=== PATIENT | female | born 2000 | race Caucasian/White ===

== ENCOUNTER 2018-06-28 04:33 | Observation (INO) | payer SELFPAY ==
[2018-06-28] MEDS ORDERED: NS 1,000 ML IV ONE ×3 (04:41→07:04)
--- NOTE | 2018-06-28 04:41 | EDPHY ---
H & P Stated Complaint: LOWER ABD PAIN,DIARRHEA/POSS ALLERGIC REACTION Time Seen by Provider: 06/28/18 04:41 HPI/ROS: HPI CHIEF COMPLAINT: Abdominal pain, rash HISTORY OF PRESENT ILLNESS: 17-year-old female, history of asthma, presents emergency room with urticaria, this started approximately half an hour ago while she was coming to the emergency room. She happened to be come to the emergency room by private vehicle for abdominal pain. The abdominal pain is located in her lower abdomen. She did not have a rash or urticaria earlier tonight. Reports when she was driving over here she felt tingling in her face and broke out in this diffuse urticaria rash. Main complaint is mid abdomen periumbilical abdominal pain crampy. Across lower abdomen. This been present for few days. Patient reports that early in the week she was sick with a viral illness with nausea vomiting and diarrhea. Nonbloody. No fever. However did have some lower abdominal cramping got worse last night which prompted her to come to the emergency room. Subsequently upon arrival to the emergency room she broke out into in urticaria/ hives. She states her new. Denies new medications, new foods. Has never had this before. Past Medical History: Denies medical history except for asthma Past Surgical History: No surgical history Social History: Denies drugs alcohol tobacco. Family History: Noncontributory ROS REVIEW OF SYSTEMS: 10 Systems were reviewed and negative with the exception of the elements mentioned in the history of present illness. Exam Constitutional nontoxic, triage nursing summary reviewed, vital signs reviewed , awake/alert. Eyes normal conjunctivae and sclera, EOMI, PERRLA. HENT normal inspection, atraumatic, moist mucus membranes, no epistaxis, neck supple/ no meningismus, no raccoon eyes. Respiratory clear to auscultation bilaterally, normal breath sounds, no respiratory distress, no wheezing. Cardiovascular rate normal, regular rhythm, no murmur, no edema, distal pulses normal. Gastrointestinal mild tender palpation lower abdomen. no rebound, no guarding , normal bowel sounds, no distension, no pulsatile mass. Genitourinary no CVA tenderness. Musculoskeletal no midline vertebral tenderness, full range of motion, no calf swelling, no tenderness of extremities, no meningismus, good pulses, neurovascularly intact. Skin diffuse redness and urticaria. Flushed. Neurologic awake, alert and oriented x 3, AAOx3, moves all 4 extremities equally, motor intact, sensory intact, CN II-XII intact, normal cerebellar, normal vision, normal speech. Psychiatric normal mood/affect. Heme/Lymph/Immune no lymphadenopathy. Differential diagnosis includes but is not limited to and in no particular order : Bowel obstruction, appendicitis, gallbladder disease, diverticulitis, colitis , enteritis, perforated viscus, gastritis, GERD, esophagitis, urinary tract infection, pyelonephritis, kidney stones Medical Decision Making: Plan for this patient IV establishment IV fluid bolus , IV Solu-Medrol, IV Pepcid, IV Benadryl, close monitoring, watch for further allergic reaction, abdominal labs, blood work, urinalysis, test. Re- evaluate. Re-evaluation: 0559AM: Patient is feeling much better after IV fluids. CT scan abdomen pelvis with IV contrast called to me by Dr. Green shows enterocolitis. 0618: Patient is resting comfortably no acute distress. No abdominal pain on exam. Her urticaria and red skin has resolved IV fluids IV Solu-Medrol IV Benadryl and IV Pepcid. No further allergic reaction this time. CT scan shows fluid in her colon normal appendix, CT scan concerning for enterocolitis 0654: Re-evaluated patient her hives are gone, no urticaria, feeling well much improved after IV fluids and meds. CT scan reviewed Labs reviewed GI stool study sent. Return precautions discussed with patient return emergency room if worsening abdominal pain, bloody stools, fever, vomiting or not doing well. Here in emergency room she received allergic reaction medications including Solu -Medrol, Benadryl, Pepcid, IV fluids and is doing well. Prescription provided for Benadryl, Pepcid, prednisone for the next 3 days Return if worsening allergic reaction or abdominal pain fever vomiting she understands and is comfortable this plan. Source: Patient - Personal History LMP (Females 10-55): 15-21 Days Ago Current Tetanus Diphtheria and Acellular Pertussis (TDAP): No - Medical/Surgical History Hx Asthma: Yes Hx Chronic Respiratory Disease: No Hx Diabetes: No Hx Cardiac Disease: No Hx Renal Disease: No Hx Cirrhosis: No Hx Alcoholism: No Hx HIV/AIDS: No Hx Splenectomy or Spleen Trauma: No Other PMH: ASTHMA - Social History Smoking Status: Never smoked Constitutional: Initial Vital Signs Temperature (C) 37.1 C 06/28/18 04:37 Heart Rate 112 H 06/28/18 04:37 Respiratory Rate 16 06/28/18 04:37 Blood Pressure 121/77 H 06/28/18 04:37 O2 Sat (%) 98 06/28/18 04:37 O2 Delivery Mode Room Air Allergies/Adverse Reactions: No Known Allergies Allergy (Unverified 06/28/18 04:36) Home Medications: Medication Instructions Recorded Famotidine [Pepcid 20 MG (*)] 20 mg PO BID #6 tab 06/28/18 diphenhydrAMINE [Benadryl 25 MG 25 mg PO BID #6 tab 06/28/18 (*)] predniSONE 60 mg PO DAILY #9 tab 06/28/18 Medical Decision Making - Data Points Laboratory Results: Laboratory Results 06/28/18 05:04 06/28/18 05:04 06/28/18 06/28/18 06/28/18 05:04 05:04 05:04 WBC 11.85 10^3/uL H 10^3/uL (3.80-9.50) RBC 5.63 10^6/uL H 10^6/uL (4.18-5.33) Hgb 17.0 g/dL H g/dL (12.6-16.3) Hct 50.3 % H % (38.0-47.0) MCV 89.3 fL fL (81.5-99.8) MCH 30.2 pg pg (27.9-34.1) MCHC 33.8 g/dL g/dL (32.4-36.7) RDW 11.9 % % (11.5-15.2) Plt Count 336 10^3/uL 10^3/uL (150-400) MPV 11.0 fL fL (8.7-11.7) Neut % (Auto) 69.9 % % (39.3-74.2) Lymph % (Auto) 22.2 % % (15.0-45.0) [place] % (Auto) 6.1 % % (4.5-13.0) Eos % (Auto) 1.0 % % (0.6-7.6) Baso % (Auto) 0.3 % % (0.3-1.7) Nucleat RBC Rel Count 0.0 % % (0.0-0.2) Absolute Neuts (auto) 8.29 10^3/uL H 10^3/uL (1.70-6.50) Absolute Lymphs (auto) 2.63 10^3/uL 10^3/uL (1.00-3.00) Absolute Monos (auto) 0.72 10^3/uL 10^3/uL (0.30-0.80) Absolute Eos (auto) 0.12 10^3/uL 10^3/uL (0.03-0.40) Absolute Basos (auto) 0.03 10^3/uL 10^3/uL (0.02-0.10) Absolute Nucleated RBC 0.00 10^3/uL 10^3/uL (0-0.01) Immature Gran % 0.5 % % (0.0-1.1) Immature Gran # 0.06 10^3/uL 10^3/uL (0.00-0.10) Sodium 142 mEq/L mEq/L (135-145) Potassium 4.0 mEq/L mEq/L (3.5-5.2) Chloride 111 mEq/L H mEq/L (97-110) Carbon Dioxide 19 mEq/l L mEq/l (22-31) Anion Gap 12 mEq/L mEq/L (6-14) BUN 12 mg/dL mg/dL (7-23) Creatinine 0.7 mg/dL mg/dL (0.6-1.0) Estimated GFR > 60 Glucose 106 mg/dL H mg/dL (70-100) Calcium 9.9 mg/dL mg/dL (8.5-10.4) Total Bilirubin 0.5 mg/dL mg/dL (0.1-1.4) Conjugated Bilirubin 0.3 mg/dL mg/dL (0.0-0.5) Unconjugated Bilirubin 0.2 mg/dL mg/dL (0.0-1.1) AST 36 IU/L IU/L (14-46) ALT 32 IU/L IU/L (9-52) Alkaline Phosphatase 56 IU/L IU/L (38-126) Total Protein 7.2 g/dL g/dL (6.3-8.2) Albumin 4.4 g/dL g/dL (3.5-5.0) Lipase 73 IU/L IU/L (23-300) Beta HCG, Qual NEGATIVE Medications Given: Discontinued Medications Diphenhydramine HCl (Benadryl Injection) 50 mg IVP EDNOW ONE Stop: 06/28/18 04:49 Last Admin: 06/28/18 05:00 Dose: 50 mg Famotidine (Pepcid) 20 mg IVP EDNOW ONE Stop: 06/28/18 04:49 Last Admin: 06/28/18 05:00 Dose: 20 mg Sodium Chloride (Ns) 1,000 mls @ 0 mls/hr IV EDNOW ONE; Wide Open PRN Reason: Protocol Stop: 06/28/18 04:42 Last Admin: 06/28/18 05:01 Dose: 1,000 mls Sodium Chloride (Ns) 1,000 mls @ 0 mls/hr IV ONCE ONE PRN Reason: Wide Open Stop: 06/28/18 04:49 Last Admin: 06/28/18 05:01 Dose: 1,000 mls Lorazepam (Ativan Injection) 1 mg IVP EDNOW ONE Stop: 06/28/18 05:25 Last Admin: 06/28/18 05:53 Dose: Not Given Methylprednisolone Sodium Succinate (Solu-Medrol) 125 mg IVP EDNOW ONE Stop: 06/28/18 04:49 Last Admin: 06/28/18 05:00 Dose: 125 mg Departure - Departure Disposition: Home, Routine, Self-Care Clinical Impression: Diarrhea, Dehydration, Allergic reaction Condition: Good Instructions: Dehydration (ED), Acute Diarrhea (ED), Allergies (ED), General Allergic Reaction (ED) Additional Instructions: 1. [place] diet over the next 24-48 hours 2. Return emergency room if you have worsening abdominal pain, fever, vomiting 3. Return if you have further allergic reaction symptoms. Referrals: NONE *PRIMARY CARE P,. [Primary Care Provider] - As per Instructions Prescriptions: diphenhydrAMINE [Benadryl 25 MG (*)] 25 mg PO BID #6 tab Famotidine [Pepcid 20 MG (*)] 20 mg PO BID #6 tab predniSONE 60 mg PO DAILY #9 tab
[2018-06-28] MEDS ORDERED: FAMOTIDINE 20 MG/2 ML SDV IVP ONE (04:48)
[2018-06-28] MEDS ORDERED: methylPREDNISolone SOD SUCC 125 MG/2 ML VIAL IVP ONE (04:48)
[2018-06-28 05:12] LABS: PLATELET COUNT 336 10^3/uL (150-400)
[2018-06-28] MEDS ORDERED: LORazepam 2 MG/ML INJ IVP ONE (05:24)
[2018-06-28] MEDS ORDERED: IOPAMIDOL (ISOVUE-300) 100 ML BTL ONE (05:27)
[2018-06-28] MEDS ORDERED: fentaNYL 100 MCG/2 ML INJ IVP ONE (07:24)
[2018-06-28] MEDS ORDERED: HYDROmorphONE/DILAUDID 2 MG/ML INJ IVP ONE (07:36)
[2018-06-28] MEDS ORDERED: ONDANSETRON 4 MG/2 ML VIAL IVP PRN (09:35)
[2018-06-28] MEDS ORDERED: PROMETHAZINE HCL 25 MG/ML INJ IVP PRN (09:35)
[2018-06-28] MEDS ORDERED: ACETAMINOPHEN 325 MG TAB PO PRN (09:35)
[2018-06-28] MEDS ORDERED: ONDANSETRON DISINTEGRATING 4 MG TAB PO PRN (09:35)
[2018-06-28] MEDS ORDERED: NS 1,000 ML IV SCH (09:45)
[2018-06-28] MEDS ORDERED: ALBUTEROL 60 PUFFS/8 GM MDI IH PRN (11:24)
--- NOTE | 2018-06-28 12:06 | GHP ---
DATE OF ADMISSION: 06/28/2018 HISTORY OF PRESENT ILLNESS: The patient is a 17-year-old female with no past medical history other t medrano mild asthma. She presents to the ER with abdominal pain. She has recently been diagnosed with n orovirus. 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 Her symptoms have improved with regard to the nausea, vomiting, diarrhea, but she has had intermitten t cramping abdominal pain, and it got so bad last night she became concerned and sought care. On the way she developed an erythematous rash all over her face. She did not have shortness of breath, str idor, dysphagia, urgency urinary urgency, or vaginal irritation. She has no rheumatologic family his tory. REVIEW OF SYSTEMS: Complete 10-point review of systems conducted. Negative except as noted in the H PI. PAST MEDICAL HISTORY: Mild asthma. ALLERGIES: No known drug allergies. HOME MEDICATIONS: Albuterol, iron, p.r.n. ibuprofen. SOCIAL HISTORY: She lives in [place]. No tobacco. Minimal alcohol. FAMILY HISTORY: Parents healthy at the bedside. PHYSICAL EXAMINATION: VITAL SIGNS: Temp 37.1, blood pressure 121/77, pulse 112, now about 90. Ericson thing 16 times a minute, and 98% on room air. GENERAL: No acute distress. HEENT: Sclerae anicteri c. Oropharynx clear. Mucous membranes moist. NECK: Supple without lymphadenopathy or JVD. LUNGS: Clear to auscultation bilaterally. HEART: S1, S2. ABDOMEN: Soft, nontender, nondistended. LOWE R EXTREMITIES: No edema. Calves are nontender. SKIN: Without rash. It is resolved. DATA REVIEWED: Labs: UA negative. Sodium 142, potassium 4.0, chloride 111, bicarb 19, BUN 12, crea tinine 0.7, glucose 106. LFTs normal. Lipase normal. The hCG is negative. White count 11.8, hemat ocrit 50, platelets are 336,000. Abdominal CT images reviewed interpreted by me shows a small bowel pattern, otherwise unremarkable. There is a normal appendix. I discussed the case Dr. Angel Del Real. ASSESSMENT/PLAN: A 17-year-old female with rash, norovirus, abdominal pain. 1. Rash. This is likely some environmental exposure, resolved completely with Benadryl and steroids . I will not continue steroids. We will follow. There is no evidence of mucous membrane involvemen t. It is possible that it is related to the virus, although I doubt it. 2. Norovirus. The patient is euvolemic. We will continue IV fluids and antiemetics. 3. Abdominal pain. This is almost certainly crampy, colicky abdominal pain in the setting of a ____ gut. 4. Polycythemia. The patient is probably a bit dry. We will volume resuscitate and follow. 5. Disposition: Observation status. /[id number]/MODL
[2018-06-29 08:28] VITALS: BP 101/89
[2018-06-29] MEDS ORDERED: Herbals/Supplements -Info Only PO SCH (09:00)
--- NOTE | 2018-06-29 09:37 | HOSPPROG ---
Hospitalist Progress Note Assessment/Plan: 17 yo F w norovirus, rash both resolved home today see dc summary Subjective: rash resolved. eating Objective: Vital Signs Temp Pulse Resp BP Pulse Ox 37.0 C 76 16 101/89 H 98 06/29/18 08:00 06/29/18 08:00 06/29/18 08:00 06/29/18 08:00 06/29/18 08:00 06/28/18 06/29/18 06/30/18 05:59 05:59 05:59 Intake Total 3000 Balance 3000 - Physical Exam Constitutional: no apparent distress, appears nourished Eyes: PERRL, anicteric sclera Ears, Nose, Mouth, Throat: moist mucous membranes, hearing normal Cardiovascular: regular rate and rhythym, no murmur, rub, or gallop Respiratory: no respiratory distress, no rales or rhonchi Gastrointestinal: normoactive bowel sounds Genitourinary: no bladder fullness, No looney in urethra Skin: warm, normal color Musculoskeletal: full muscle strength ICD10 Worksheet Patient Problems: Problems Problem Status Onset Allergic reaction Acute Dehydration Acute Diarrhea Acute
--- NOTE | 2018-06-29 15:40 | GDS ---
DISCHARGE DIAGNOSES: 1. Nausea, vomiting, diarrhea secondary to norovirus infection. 2. Rash, suspect allergic. Please see admission history and physical by Dr. Justin Vasquez. The patient presented with abdomina l pain. She had a CT that was unremarkable with regard to appendicitis. It was consistent with an e nteritis. She had an erythematous rash that resolved with a dose of steroids and did not have mucous membrane involvement. She had stable vitals and is discharged home. I have taken the liberty of di scontinuing her prednisone and famotidine as this rash is resolved with 1 time intervention. I advis ed her to take Benadryl and examine new contacts such as foods and cosmetics. /[id number]/MODL
== END 2018-06-29 11:35 | disposition home or self-care (01) ==
LOC: F3E 10:20
PROVIDERS: ADMIT Internal Medicine; ATTEND Internal Medicine
DX: R11.2 Nausea with vomiting, unspecified (principal); R19.7 Diarrhea, unspecified; R21 Rash and other nonspecific skin eruption; J45.909 Unspecified asthma, uncomplicated; E86.9 Volume depletion, unspecified
CPT/HCPCS: 96374; G0378; J1170; J1200; J2060; J2930; J3010; Q9967